=== PATIENT | male | born 1980 | race Caucasian/White ===

== ENCOUNTER 2023-02-11 01:09 | Observation (INO) | payer OTHER, SELFPAY ==
[2023-02-11] VITALS (10 sets, daily range): BP systolic 120–154; BP diastolic 65–88; PULSE 56–93; RESP 15–19; TEMP 36.2–36.6; O2SAT 98–100; BMI 28.8
--- NOTE | 2023-02-11 | ECHO_ITS ---
Patient Info Name: Leonard Kam Age: 42 years : 1980 Gender: Male Ht: 70 in Wt: 198 lbs BSA: 2.12 m2 HR: 88 bpm Heart Rhythm: Sinus Rhythm Technical Quality: Good Exam Date: 02/11/2023 2:55 PM Exam Location: [facility] Patient Status: Inpatient Admit Date: 02/11/2023 Staff Ordering Physician: Sanya Cruz MD Attending Provider: Ambrosio Bronson MD Referring Physician: Anthony GALDAMEZ; Exam Type: CA echo doppler color flow Study Info Indications - SYNCOPE Complete two-dimensional, color flow and Doppler transthoracic echocardiogram is performed. Summary 1. Complete two-dimensional, color flow and Doppler transthoracic echocardiogram is performed. 2. Left ventricular chamber dimension is normal. 3. Left ventricular systolic function is normal, estimated at 65-70%. 4. There is no increased left ventricular wall thickness. 5. The left ventricular diastolic function is normal. 6. There is mild tricuspid valve regurgitation. Left Ventricle Left ventricular chamber dimension is normal. Left ventricular systolic function is normal, estimated at 65-70%. There is no increased left ventricular wall thickness. The left ventricular diastolic function is normal. Right Ventricle Right ventricular chamber dimension is normal. Right ventricular systolic function is normal. Left Atria Left atrial chamber dimension is normal. Right Atria Right atrial chamber dimension is normal. Atrial Septum Intact interatrial septum visualized by color flow imaging. Aortic Valve The aortic valve is trileaflet. There is mild aortic valve sclerosis. There is no aortic valve stenosis. There is trace aortic valve regurgitation. Pulmonic Valve The pulmonic valve is normal. There is no pulmonic valve stenosis. There is trace pulmonic regurgitation. Mitral Valve The mitral valve has normal leaflets. There is no mitral valve stenosis. There is trace mitral valve regurgitation. Tricuspid Valve The tricuspid valve leaflets are normal. There is no significant tricuspid valve stenosis. There is mild tricuspid valve regurgitation. No pulmonary hypertension, estimated pulmonary arterial systolic pressure is 15 mmHg. Pericardium/Pleural The pericardium appears normal. There is no pericardial effusion. Inferior Vena Cava Normal inferior vena cava with <50% collapse upon inspiration consistent with elevated right atrial pressure, 10 mmHg. Aorta The aortic root size at the sinus of Valsalva is normal. Left Ventricular Outflow Tract Name Value Normal LVOT 2D LVOT Diameter 2.0 cm LVOT Doppler LVOT Peak Gradient 6 mmHg LVOT Mean Gradient 3 mmHg LVOT VTI 26 cm LVOT VTI/AV VTI Ratio 0.8 LVOT Stroke Volume 83 ml LVOT CO 5.2 l/min LVOT CI 2.4 l/min/m2 Pulmonic Valve Name Value Normal RVOT Doppler -------
--- NOTE | ~2023-02-11 | CT_ITS ---
EXAMINATION: CT brain wo con DATE: 02/11/2023 01:52 INDICATION: Syncope. TECHNIQUE: Computed tomography (CT) of the head was performed without intravenous contrast. The mA wa s adjusted according to patient size. Iterative reconstruction technique was employed. The dose-lengt h product was 681.00 mGy-cm. COMPARISON: None FINDINGS: There is no intracranial hemorrhage, acute infarction, or abnormal intracranial mass lesion . The ventricles are normal in size. There is mucosal thickening in the paranasal sinuses. The orbits are normal. The mastoid air cells are normal. IMPRESSION: 1. Normal brain. Reviewed, dictated and finalized at location E. IMPRESSION: 1. Normal brain.
--- NOTE | ~2023-02-11 | XR_ITS ---
XR chest 1V portable DATE: 02/11/2023 01:44 INDICATION: Syncope. Palpitations. TECHNIQUE: Portable upright AP chest on 02/11/2023 at 0140 hours COMPARISON: 06/27/2014 PA and lateral chest FINDINGS: Normal heart size. No hilar or mediastinal enlargement. No pulmonary infiltrate or consolid ation, pleural effusion or pulmonary vascular congestion or pneumothorax is detected. Thoracic scoliosis. IMPRESSION: No active cardiopulmonary disease Reviewed, dictated and finalized at location A.
--- NOTE | 2023-02-11 01:12 | ECG_ITS ---
Measurements Intervals [place] Rate: 85 P: 43 UT: 168 QRS: 25 QRSD: 101 T: 30 QT: 363 QTc: 432 Interpretive Statements SINUS RHYTHM INCOMPLETE RIGHT BUNDLE BRANCH BLOCK MINIMAL Q WAVES- LAT/HIGH LAT LEADS BORDERLINE ECG NO PREVIOUS ECG AVAILABLE FOR COMPARISON Electronically Signed On 02-11-2023 7:29:27 CDT by Miguel Guillory D.O.
[2023-02-11 01:53] LABS: Basophils Absolute Auto 0.1 K/mm3 (0.0-0.1); Eosinophils Absolute Auto 0.3 K/mm3 (0-0.3); Eosinophils Percent Auto 2.3 % (0-4.4); Hematocrit 43.8 % (42.0-52.0); Hemoglobin 14.9 g/dL (14.0-18.0); Immature Granulocyte Absolute 0.04 K/mm3 (0.00-0.031); Immature Granulocyte Percent A 0.3 % (0-0.5); Lymphocytes Absolute Auto 5.12 K/mm3 (0.9-3.2); Lymphocytes Percent Auto 38.5 % (18.3-44.2); Mean Corpuscular Hemoglobin 29.5 pg (26-34); Mean Corpuscular Volume 86.7 fl (80-100); Mean Platelet Volume 10.4 fl (7.4-10.4); Monocytes Percent Auto 7.2 % (2.6-8.5); Neutrophils Absolute Auto 6.8 K/mm3 (1.3-6.7); Neutrophils Percent Auto 50.7 % (45.5-73.1); Platelet Count Result 188 k/mm3 (150-375); Red Blood Count 5.05 M/mm3 (4.6-6.20); Red Cell Distribution Width 12.9 % (11.5-14.5); White Blood Count 13.3 K/mm3 (4.5-10.0)
[2023-02-11] MEDS: SODIUM CHLORIDE 0.9% IV 1,000 ML 999 ML IV CONT ×2 (01:55)
[2023-02-11 02:05] LABS: INR 1.1; Prothrombin Time 14.5 Seconds (11.1-14.7)
[2023-02-11 02:06] LABS: Partial Thromboplastin Time 25.5 SECONDS (22.3-36.8)
[2023-02-11 02:10] LABS: Ethanol < 10 mg/dL (<10)
[2023-02-11 02:19] LABS: Alanine Aminotransferase 28 U/L (6-50); Albumin Level 4.2 g/dL (3.5-5.1); Alkaline Phosphatase 58 U/L (38-126); Anion Gap 9 mmol/L (8-16); Aspartate Amino Transferase 43 U/L (17-59); Bilirubin,Total 0.5 mg/dL (0.2-1.3); Blood Urea Nitrogen 18 mg/dL (9-20); Calcium 8.9 mg/dL (8.4-10.2); Carbon Dioxide 26 mmol/L (22-30); Chloride 103 mmol/L (98-107); Estimated Glomerular Filt Rate > 60; Glucose 108 mg/dL (65-110); Lipase 175 U/L (23-300); Potassium 3.2 mmol/L (3.4-5.0); Sodium 138 mmol/L (137-145)
[2023-02-11 02:22] LABS: Troponin I < 0.012 ng/mL (0.000-0.034)
[2023-02-11 02:25] LABS: Lactic Acid Reflex 1.8 mmol/L (0.7-2.0)
[2023-02-11 03:50] LABS: Appearance Urine Clear (Clear); Bilirubin Urine Negative (Negative); Blood Urine Negative (Negative); Color Urine Yellow (Yellow); Glucose Urine UA Negative (Negative); Ketones Urine Trace mg/dL (Negative); Leukocyte Esterase Ur Negative LEU/UL (Negative); Nitrate Urine Negative (Negative); Protein Urine Negative (Negative); Specific Grav Ur 1.014 (1.001-1.035); Urobilinogen Urine 0.2 mg/dL (<2.0); pH Urine 6.5 (5.0-9.0)
[2023-02-11 04:07] LABS: Amphetamine Screen Urine Negative (Negative); Barbiturate Screen Urine Negative (Negative); Benzodiazepines Screen Urine Negative (Negative); Cannabinoid Screen Urine Positive (Negative); Cocaine Screen Urine Negative (Negative); Methadone Screen Urine Negative (Negative); Opiate Screen Urine Negative (Negative); Phencyclidine Screen Urine Negative (Negative)
[2023-02-11 04:10] LABS: Add Urine Microscopic? NO
--- NOTE | 2023-02-11 05:03 | ED.GENADULT ---
HPI - General Adult General Chief complaint: Arrhythmia/Palpitations Stated complaint: tachycardia Time Seen by Provider: 02/11/23 01:31 History of Present Illness HPI narrative: Patient is a 42-year-old gentleman who presents the emergency department with chief complaint of syncopal episode. Patient reports this evening he started having palpitations and his Apple Watch alarmed him saying that his heart rate was fast. Patient in the lobby had an episode where he became unresponsive and was extremely diaphoretic. By the time the patient was got to her room and was able to be placed on the monitor his heart rate was normal. 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 Nursing and ancillary documentation was reviewed. Exam Narrative: GENERAL: Well-appearing, well-nourished, and in no acute distress. HEAD: Normocephalic, atraumatic. EYES: PERRLA and EOMI. ENT: Nares clear, no rhinorrhea or epistaxis. Mucous membranes moist. NECK: Supple. CHEST: Clear to auscultation. No respiratory distress. HEART: Regular rate and rhythm. No murmur heard. Normal peripheral pulses. ABDOMEN: Soft, nontender, nondistended, normal active bowel sounds. EXTREMITIES: Normal range of motion. No edema. SKIN: Warm, dry, no rash. NEURO: No focal deficits. Alert and oriented x3. PSYCH: Normal mood and affect. Course Vital Signs Vital signs: Vital Signs Temperature 36.5 C 02/11/23 01:25 Pulse Rate 93 02/11/23 01:25 Respiratory Rate 19 02/11/23 01:25 Blood Pressure 146/88 H 02/11/23 01:25 Pulse Oximetry 98 02/11/23 01:25 Oxygen Delivery Room Air 02/11/23 01:25 Temperature 36.5 C 02/11/23 01:25 Pulse Rate 93 02/11/23 01:25 Respiratory Rate 19 02/11/23 01:25 Blood Pressure 146/88 H 02/11/23 01:25 Pulse Oximetry 98 02/11/23 01:25 Oxygen Delivery Room Air 02/11/23 01:25 Medical Decision Making MDM Narrative Medical decision making narrative: Differential diagnosis includes dysrhythmia, electrolyte abnormality, ACS, seizure, syncope Laboratory studies were obtained which showed normal electrolytes normal CBC EKG showed sinus rhythm rate of 85 CT head showed no acute abnormality Chest x-ray showed no focal infiltrate or widened mediastinum Vital Signs Vital Signs: Vital Signs Temperature 36.5 C 02/11/23 01:25 Pulse Rate 93 02/11/23 01:25 Respiratory Rate 02/11/23 01:25 Blood Pressure 146/88 H 02/11/23 01:25 Pulse Oximetry 98 02/11/23 01:25 Oxygen Delivery Room Air 02/11/23 01:25 Temperature 36.5 C 02/11/23 01:25 Pulse Rate 93 02/11/23 01:25 Respiratory Rate 02/11/23 01:25 Blood Pressure 146/88 H 02/11/23 01:25 Pulse Oximetry 98 02/11/23 01:25 Oxygen Delivery Room Air 02/11/23 01:25 Lab Data 02/11/23 01:43 02/11/23 01:48 Labs: Lab Results 02/11/23 02/11/23 02/11/23 Range/Units 01:43 01:48 03:43 WBC 13.3 H (4.5-10.0) K/mm3 RBC 5.05 (4.6-6.20) M/mm3 Hgb 14.9 (14.0-18.0) g/dL Hct 43.8 (42.0-52.0) % MCV 86.7 (80-100) fl MCH 29.5 (26-34) pg MCHC 34.0 (32-36) g/dl RDW 12.9 (11.5-14.5) % Plt Count 188 (150-375) k/mm3 MPV 10.4 (7.4-10.4) fl Immature Gran % (Auto) 0.3 (0-0.5) % Neut % (Auto) 50.7 (45.5-73.1) % Lymph % (Auto) 38.5 (18.3-44.2) % [place] % (Auto) 7.2 (2.6-8.5) % Eos % (Auto) 2.3 (0-4.4) % Baso % (Auto) 1.0 (0.2-1.2) % Lymph # (Auto) 5.12 H (0.9-3.2) K/mm3 Gila # (Auto) 1.0 H (0.1-0.6) K/mm3 Eos # (Auto) 0.
[2023-02-11 05:22] LABS: Troponin I < 0.012 ng/mL (0.000-0.034)
--- NOTE | 2023-02-11 10:26 | PM.SD2 ---
Same Day Admit/Disch: HPI History of Present Illness Chief complaint: Syncope/Palpitations Narrative: Leonard Kam is a 42 year old male who presents the emergency department with chief complaint of syncopal episode.? Patient reports this evening he started having palpitations and his Apple Watch alarmed him saying that his heart rate was fast.? Patient in the lobby had an episode where he became unresponsive and was extremely diaphoretic.? By the time the patient was got to her room and was able to be placed on the monitor his heart rate was normal.? 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 Was monitored on telemetry and there was no arrhythmia. Also start her negative. Echo was obtained and was completely normal. This was likely a vasovagal episode and patient was discharged home [facility] Social History Social History Smoking status: Never smoker Second hand tobacco smoke exposure: No Alcohol intake: current Drinks per week: 8 Substance use: current Substance use type: marijuana Lack of Transportation: No Lack of Food: Never True Current Housing: I Have Housing Concerned About Future Housing: No Difficulty Paying Gas/Electric Bills: No Difficulty Paying for Meds: No Currently Unemployed: No Education: Bachelor's Degree Difficulty w/ Childcare or Family Care: No Spiritual care concerns: No Same Day Admit/Disch: Med Pre-admit Medications Home Medications Medication Instructions Recorded Confirmed Type No Home Medications 02/11/23 02/11/23 History Review of Systems Review of Systems All systems reviewed & are unremarkable except as noted in HPI and below Exam Const: General: cooperative and comfortable Orientation/consciousness: patient oriented x3 HENMT: Head: normal to inspection Mouth: Yes Normal oral and palatal mucosa present Eyes: General: appearance normal, both eyes and all related structures Resp: Effort & Inspection: normal respiratory effort Auscultation: clear to auscultation bilaterally Cardio: Rate: regular rate Rhythm: regular rhythm Heart sounds: S1 normal heart sound present and S2 normal heart sound present GI: GI Palp: Yes Soft to palpation Auscultation: normal bowel sounds Skin: General skin exam: normal color and no rashes or lesions noted Neuro: General: patient oriented x3, no focal motor deficits and CN's II-XI intact bilaterally Speech: normal speech Extrem: General: full ROM Psych: Appearance: grossly normal DS: Data Data Completed and Pending Labs on day of discharge: Labs from last 24 hours 02/11/23 02/11/23 02/11/23 04:57 03:43 01:48 WBC RBC Hgb Hct MCV MCH MCHC RDW Plt Count MPV Immature Gran % (Auto) Neut % (Auto) Lymph % (Auto) [place] % (Auto) Eos % (Auto) Baso % (Auto) Lymph # (Auto) [place] # (Auto) Eos # (Auto) Baso # (Auto) Abs Immat Gran (auto) Absolute Neuts (auto) Absolute Nucleated RBC Nucleated RBC % PT 14.5 INR 1.1 APTT 25.5 Sodium 138 Potassium 3.2 L Chloride 103 Carbon Dioxide 26 Anion Gap 9 BUN 18 Creatinine 1.10 Estim Creat Clear Calc Not Reportable Estimated GFR > 60 Glucose 108 Lactic Acid Calcium 8.9 Magnesium 2.0 Total Bilirubin 0.5 AST 43 ALT 28 Alkaline Phosphatase 58 Troponin I < 0.012 < 0.012 Total Protein 7.0 Albumin 4.2 Lipase 175 Urine Color Yellow Urine Appearance Clear Urine pH 6.5 Ur Specific [place] 1.014 Urine Protein Negative Urine Glucose (UA) Negative Urine Ketones Trace H Ur Blood (Man) Negative Urine Nitrate Negative Urine Bilirubin Negative Urine Urobilinogen 0.2 Leukocyte Esterase Rfl Negative Urine Opiates Screen Negative
== END 2023-02-11 18:00 | disposition home or self-care (01) ==
LOC: ANHED 06:51 → ANH3MEDSUR 10:26
PROVIDERS: Admitting Provider Hospitalist; Emergency Provider Emergency Medicine; Visit Provider Hospitalist
DX: R55 Syncope and collapse (principal); R61 Generalized hyperhidrosis; I08.2 Rheumatic disorders of both aortic and tricuspid valves; I45.10 Unspecified right bundle-branch block; F10.90 Alcohol use, unspecified, uncomplicated; F12.90 Cannabis use, unspecified, uncomplicated
CPT/HCPCS: 36415; 70450; 71045; 80053; 80307; 81003; 83605; 83690; 83735; 84484; 85025; 85610; 85730; 93005; 93306; 96360; 99285; G0378; J7030